=== PATIENT | male | born 1985 | race Caucasian/White ===

== ENCOUNTER 2020-10-11 23:40 | Emergency (ER) | payer OTHER ==
[2020-10-11 23:56] VITALS: BP 116/73; PULSE 73; RESP 19; TEMP 98
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
[2020-10-12] MEDS ORDERED: HYDROcodone/APAP 5-325MG 1 EACH TAB PO STA (00:21)
[2020-10-12] MEDS ORDERED: IBUPROFEN 600 MG TAB PO STA (00:21)
--- NOTE | 2020-10-12 00:44 | XR ---
EXAM: XR Right Ribs and AP Chest, 3 or More Views CLINICAL HISTORY: Injury. Chest pain. TECHNIQUE: Frontal and oblique views of the right ribs and frontal view of the chest. COMPARISON: No previous studies. FINDINGS: Lungs: The lungs are well aerated. Pleural space: No pneumothorax. No pleural effusion appeared Right lung is well aerated without pneumothorax appeared Heart: Cardiomediastinal silhouette unremarkable. Mediastinum: See above. Bones/joints: Osteopenia. There is an acute oblique fracture of the right 10th rib posterior laterally. Remaining ribs are unremarkable. IMPRESSION: 1. Acute fracture of the posterior lateral aspect of the right 10th rib. 2. Osteopenia. 3. No pneumothorax.
== END 2020-10-12 01:35 | disposition home or self-care (01) ==
LOC: EC 23:40
DX: S22.31XA Fracture of one rib, right side, initial encounter for closed fracture (principal); Z86.14 Personal history of Methicillin resistant Staphylococcus aureus infection; V43.52XA Car driver injured in collision with other type car in traffic accident, initial encounter; X50.0XXA Overexertion from strenuous movement or load, initial encounter; Y92.69 Other specified industrial and construction area as the place of occurrence of the external cause; Y99.0 Civilian activity done for income or pay
CPT/HCPCS: 99285